=== PATIENT | male | born 1995 | race Caucasian/White ===

== ENCOUNTER 2023-05-13 17:34 | Emergency (ER) | payer SELFPAY ==
[~2023-05-13] VITALS: Ht 172.7 cm; Wt 89.4 kg
[2023-05-13 17:36] VITALS: BP 135/61; PULSE 83; RESP 16; TEMP 98.7; O2SAT 100
[2023-05-13] MEDS ORDERED: NAPR-56 PO (17:45)
[2023-05-13] MEDS ORDERED: CLIN-167 PO (17:45)
== END 2023-05-13 18:03 | disposition home or self-care (01) ==
LOC: ER 17:35
DX: L03.113 Cellulitis of right upper limb (principal)
CPT/HCPCS: 99283